=== PATIENT | male | born 1950 | race Caucasian/White ===

== ENCOUNTER 2017-10-15 10:34 | Outpatient (REF) | payer MEDICARE, SELFPAY ==
[2017-10-15 13:03] LABS: Cholesterol 189 mg/dL (50-200); HDL Cholesterol 47 mg/dL (40-60); LDL CHOLESTEROL 131 mg/dL (<100); Triglyceride 90 mg/dL (30-150)
== END 2017-10-15 10:54 ==
LOC: NCHCN 10:34
PROVIDERS: PCP Nurse Practitioner; Visit Provider Nurse Practitioner
DX: E78.89 Other lipoprotein metabolism disorders (principal)
CPT/HCPCS: 80061; 83721

== ENCOUNTER 2018-10-19 09:32 | Outpatient (REF) | payer MEDICARE, SELFPAY ==
[2018-10-19 23:18] LABS: ALT 47 U/L (16-63); AST 21 U/L (15-37); Anion Gap 8.9 mmol/L (3-11); BUN 17 mg/dL (7-18); CO2 28.1 mmol/L (21.0-32.0); CREATININE 0.92 mg/dL (0.70-1.30); Calcium 9.4 mg/dL (8.5-10.1); Calculated LDL 133 mg/dL; Chloride 103 mmol/L (98-107); Cholesterol 201 mg/dL (50-200); Glucose 99 mg/dL (70-100); HDL Cholesterol 51 mg/dL (40-60); Potassium 4.9 mmol/L (3.5-5.1); Sodium 140 mmol/L (136-145); Triglyceride 89 mg/dL (30-150)
[2018-10-21 11:03] LABS: PSA, Screening 1.1 ng/ml (0-4.5)
== END 2018-10-19 09:52 ==
LOC: NCHCN 09:32
PROVIDERS: PCP Nurse Practitioner Family; Visit Provider Nurse Practitioner Family
DX: R03.0 Elevated blood-pressure reading, without diagnosis of hypertension (principal); R73.03 Prediabetes; E78.89 Other lipoprotein metabolism disorders; Z12.5 Encounter for screening for malignant neoplasm of prostate
CPT/HCPCS: 80048; 80061; 84153; 83036; 84450; 84460

== ENCOUNTER 2019-12-20 14:30 | Outpatient (REF) | payer MEDICARE, SELFPAY ==
[2019-12-25 05:04] LABS: Patient Race White; SARS-CoV-2 RNA Undetected (Undetected); SARS-CoV-2 Specimen Source Nasal
== END 2019-12-20 14:50 ==
LOC: NCHCN 14:30
PROVIDERS: PCP Nurse Practitioner Family; Visit Provider Nurse Practitioner Family
DX: Z20.828 Contact with and (suspected) exposure to other viral communicable diseases (principal)
CPT/HCPCS: U0003

== ENCOUNTER 2020-01-31 13:23 | Outpatient (REF) | payer MEDICARE, SELFPAY ==
[2020-02-02 00:20] LABS: COVID-19 RT-PCR Result NEGATIVE (Negative)
== END 2020-01-31 13:43 ==
LOC: NCHCN 13:23
PROVIDERS: PCP Nurse Practitioner Family; Visit Provider Physician Assistant Medical
DX: Z11.59 Encounter for screening for other viral diseases (principal)
CPT/HCPCS: U0003

== ENCOUNTER 2020-04-05 18:24 | Outpatient (REF) | payer MEDICARE, SELFPAY ==
[2020-04-05 14:02] LABS: HCT 51.3 % (40.0-50.0); HGB 17.3 g/dL (13.5-17.5); MCH 29.5 pg (27.0-33.0); MCHC 33.7 % (32.0-36.0); MCV 87.5 fL (80-95); MPV 10.6 fL (8.0-11.0); Platelet Count 254 10^3/uL (130-400); RBC 5.86 10^6/uL (4.36-5.78); RDW 12.5 % (11.8-14.1); RDW-SD 40.5 fL; WBC 7.55 10^3/uL (4.4-10.8)
[2020-04-05 14:34] LABS: ALT 34 U/L (16-63); AST 16 U/L (15-37); Anion Gap 10.5 mmol/L (3-11); BUN 26 mg/dL (7-18); CO2 27.5 mmol/L (21.0-32.0); Calcium 8.9 mg/dL (8.5-10.1); Calculated LDL 119 mg/dL (<100); Chloride 105 mmol/L (98-107); Cholesterol 181 mg/dL (<200); Glucose 93 mg/dL (74-106); HDL Cholesterol 50 mg/dL (40-60); Potassium 4.4 mmol/L (3.5-5.1); Sodium 143 mmol/L (136-145); Triglyceride 64 mg/dL (<150)
== END 2020-04-05 18:25 | disposition home or self-care (01) ==
LOC: NCHCN 18:24
PROVIDERS: PCP Nurse Practitioner Family; Visit Provider Nurse Practitioner Family
DX: Z13.220 Encounter for screening for lipoid disorders (principal); I10 Essential (primary) hypertension
CPT/HCPCS: 80048; 80061; 85027; 84450; 84460

== ENCOUNTER 2020-07-04 09:42 | Outpatient (REF) | payer MEDICARE, SELFPAY ==
[2020-07-04 13:58] LABS: Hemoglobin A1C 5.7 % (<5.7)
[2020-07-04 22:25] LABS: PSA, Screening 0.7 ng/mL (0.0-4.5)
== END 2020-07-04 09:43 | disposition home or self-care (01) ==
LOC: NCHCN 09:42
PROVIDERS: PCP Nurse Practitioner Family; Visit Provider Nurse Practitioner Family
DX: R73.03 Prediabetes (principal); Z12.5 Encounter for screening for malignant neoplasm of prostate
CPT/HCPCS: 84153; 83036

== ENCOUNTER 2021-07-25 18:24 | Outpatient (REF) | payer MEDICARE, SELFPAY ==
[2021-07-25 14:56] LABS: HGB 17.6 g/dL (13.5-17.5); MCHC 32.6 % (32.0-36.0); MCV 89 fL (80-95); MPV 10.6 fL (8.0-11.0); Platelet Count 250 10^3/uL (130-400); RDW 12.9 % (11.8-14.1); RDW-SD 42.1 fL; WBC 6.39 10^3/uL (4.4-10.8)
[2021-07-25 15:08] LABS: RBC 6.07 10^6/uL (4.36-5.78)
[2021-07-25 15:22] LABS: ALT 41 U/L (16-63); AST 10 U/L (15-37); Alkaline Phosphatase 81 U/L (46-116); Anion Gap 10.2 mmol/L (3-11); BUN 21 mg/dL (7-18); Bilirubin, Total 0.3 mg/dL (0.2-1.0); CO2 24.8 mmol/L (21.0-32.0); CREATININE 1.1 mg/dL (0.70-1.30); Calcium 9.3 mg/dL (8.5-10.1); Calculated LDL 128 mg/dL (<100); Chloride 104 mmol/L (98-107); Cholesterol 196 mg/dL (<200); Glucose 86 mg/dL (74-106); HDL Cholesterol 52 mg/dL (40-60); Potassium 4.9 mmol/L (3.5-5.1); Sodium 139 mmol/L (136-145); Triglyceride 84 mg/dL (<150)
[2021-07-25 15:40] LABS: Hemoglobin A1C 5.7 % (<5.7)
[2021-07-25 22:21] LABS: PSA, Screening 1.1 ng/mL (<=6.5)
== END 2021-07-25 18:25 | disposition home or self-care (01) ==
LOC: NCHCN 18:24
PROVIDERS: PCP Nurse Practitioner Family; Visit Provider Nurse Practitioner Family
DX: I10 Essential (primary) hypertension (principal); R73.03 Prediabetes; E78.5 Hyperlipidemia, unspecified; Z12.5 Encounter for screening for malignant neoplasm of prostate
CPT/HCPCS: 80053; 80061; 84153; 85027; 83036

== ENCOUNTER 2022-10-09 09:47 | Outpatient (REF) | payer MEDICARE, SELFPAY ==
[2022-10-09 16:12] LABS: HCT 50.8 % (40.0-50.0); MCH 29.3 pg (27.0-33.0); MCHC 33.5 % (32.0-36.0); MCV 87 fL (80-95); MPV 10.6 fL (8.0-11.0); Platelet Count 267 10^3/uL (130-400); RBC 5.81 10^6/uL (4.36-5.78); RDW 12.9 % (11.8-14.1); RDW-SD 41.1 fL; WBC 6.29 10^3/uL (4.4-10.8)
[2022-10-09 16:51] LABS: Hemoglobin A1C 5.9 % (<5.7)
[2022-10-09 17:37] LABS: ALT 45 U/L (16-63); AST 21 U/L (15-37); Albumin 3.9 g/dL (3.4-5.0); Alkaline Phosphatase 84 U/L (46-116); Anion Gap 11.4 mmol/L (3-11); BUN 21 mg/dL (7-18); Bilirubin, Total 0.6 mg/dL (0.2-1.0); CO2 24.6 mmol/L (21.0-32.0); CREATININE 1.1 mg/dL (0.70-1.30); Calculated LDL 133 mg/dL (<100); Chloride 101 mmol/L (98-107); Cholesterol 200 mg/dL (<200); Estimated GFR 71.32 (mL/min/1.73m2); Glucose 109 mg/dL (74-106); HDL Cholesterol 48 mg/dL (40-60); Potassium 4.6 mmol/L (3.5-5.1); Sodium 137 mmol/L (136-145); Total Protein 6.9 g/dL (6.4-8.2); Triglyceride 97 mg/dL (<150)
[2022-10-09 22:28] LABS: PSA, Screening 0.6 ng/mL (<=6.5)
== END 2022-10-09 09:48 | disposition home or self-care (01) ==
LOC: NCHCN 09:47
PROVIDERS: PCP Nurse Practitioner Family; Visit Provider Nurse Practitioner Family
DX: I10 Essential (primary) hypertension (principal); E66.9 Obesity, unspecified; F17.210 Nicotine dependence, cigarettes, uncomplicated; Z12.5 Encounter for screening for malignant neoplasm of prostate; E78.5 Hyperlipidemia, unspecified; R73.09 Other abnormal glucose
CPT/HCPCS: 80053; 80061; 84153; 85027; 83036

== ENCOUNTER 2023-10-08 16:30 | Outpatient (REF) | payer MEDICARE, SELFPAY ==
[2023-10-08 17:22] LABS: HCT 51.5 % (40.0-50.0); HGB 16.9 g/dL (13.5-17.5); MCH 29.9 pg (27.0-33.0); MCHC 32.8 % (32.0-36.0); MCV 91 fL (80-95); MPV 11.2 fL (8.0-11.0); Platelet Count 226 10^3/uL (130-400); RBC 5.66 10^6/uL (4.36-5.78); RDW 13.2 % (11.8-14.1); RDW-SD 44.1 fL
[2023-10-08 17:39] LABS: ALT 39 U/L (16-63); AST 20 U/L (15-37); Albumin 3.8 g/dL (3.4-5.0); Alkaline Phosphatase 76 U/L (46-116); Anion Gap 9.9 mmol/L (3-11); Bilirubin, Total 0.52 mg/dL (0.2-1.0); CO2 27.1 mmol/L (21.0-32.0); Chloride 103 mmol/L (98-107); Estimated GFR 79.47 (mL/min/1.73m2); Glucose 117 mg/dL (74-106); Potassium 5.5 mmol/L (3.5-5.1); Sodium 140 mmol/L (136-145); Total Protein 6.5 g/dL (6.4-8.2)
[2023-10-08 17:52] LABS: BUN 27 mg/dL (7-18)
[2023-10-08 18:35] LABS: COMMENT (LAB VIEW ONLY) 153.22 mg/dL; Microalb ug/mg Crea 8.6 ug/mg Cr
[2023-10-08 18:35] LABS: Calculated LDL 124 mg/dL (<100); Cholesterol 190 mg/dL (<200); HDL Cholesterol 49 mg/dL (40-60); Hemoglobin A1C 5.8 % (<5.7); Triglyceride 87 mg/dL (<150)
[2023-10-09 19:58] LABS: PSA, Screening 1.3 ng/mL (<=6.5)
== END 2023-10-08 16:31 | disposition home or self-care (01) ==
LOC: NCHCN 16:30
PROVIDERS: PCP Nurse Practitioner Family; Visit Provider Nurse Practitioner Family
DX: I10 Essential (primary) hypertension (principal); E78.5 Hyperlipidemia, unspecified; R73.03 Prediabetes; R53.83 Other fatigue; Z12.5 Encounter for screening for malignant neoplasm of prostate
CPT/HCPCS: 80053; 80061; 84153; 85027; 82043; 82570; 83036

== ENCOUNTER 2024-11-10 09:29 | Outpatient (REF) | payer MEDICARE, SELFPAY ==
[2024-11-10 14:29] LABS: HCT 48.7 % (40.0-50.0); HGB 15.8 g/dL (13.5-17.5); MCH 28.9 pg (27.0-33.0); MCHC 32.4 % (32.0-36.0); MCV 89 fL (80-95); MPV 11.0 fL (8.0-11.0); Platelet Count 241 10^3/uL (130-400); RBC 5.46 10^6/uL (4.36-5.78); RDW 13.6 % (11.8-14.1); RDW-SD 44.1 fL; WBC 5.73 10^3/uL (4.4-10.8)
[2024-11-10 14:53] LABS: ALT 37 U/L (16-63); AST 19 U/L (15-37); Albumin 3.8 g/dL (3.4-5.0); Alkaline Phosphatase 85 U/L (46-116); Anion Gap 10.9 mmol/L (3-11); BUN 23 mg/dL (7-18); Bilirubin, Total 0.5 mg/dL (0.2-1.0); CO2 27.1 mmol/L (21.0-32.0); Calcium 9.2 mg/dL (8.5-10.1); Calculated LDL 114 mg/dL (<100); Chloride 105 mmol/L (98-107); Cholesterol 182 mg/dL (<200); Estimated GFR 78.98 (mL/min/1.73m2); Glucose 175 mg/dL (74-106); HDL Cholesterol 48 mg/dL (>or=40); Potassium 4.6 mmol/L (3.5-5.1); Sodium 143 mmol/L (136-145); Total Protein 6.6 g/dL (6.4-8.2); Triglyceride 101 mg/dL (<150)
[2024-11-10 22:10] LABS: PSA, Screening 0.8 ng/mL (<=6.5)
== END 2024-11-10 09:30 | disposition home or self-care (01) ==
LOC: NCHCN 09:29
PROVIDERS: PCP Nurse Practitioner Family; Visit Provider Nurse Practitioner Family
DX: Z12.5 Encounter for screening for malignant neoplasm of prostate (principal); E78.5 Hyperlipidemia, unspecified; I10 Essential (primary) hypertension
CPT/HCPCS: 80053; 80061; 84153; 85027